=== PATIENT | female | born 1930 | race Caucasian/White ===

== ENCOUNTER 2017-03-10 18:20 | Inpatient (IN) | payer MEDICARE, BC ==
[2017-03-10 19:10] LABS: CHLORIDE,CL 102 mEq/L (98-106)
[2017-03-10 19:11] LABS: SODIUM,NA 135 mEq/L (136-145)
--- NOTE | 2017-03-10 19:19 | EDM.PDOC ---
ED HPI GENERAL MEDICAL PROBLEM - General Chief Complaint: Respiratory Problem Stated Complaint: dyspnea Time Seen by Provider: 03/10/17 18:50 Source of Information: Reports: Patient, Family History Limitations: Reports: No Limitations - History of Present Illness INITIAL COMMENTS - FREE TEXT/NARRATIVE: States that at 0500 this morning she woke up SOB and felt her heart pounding and rapid. Has been sitting around today as she is SOB with any activity. Presents to ER with daughters as SOB is getting worse. Denies having Chest pain but feels a twinge intermittently. Has 1+ edema to the left ankle. States that it has been slightly swollen since she fell 2-3 weeks ago and injured it. Occasional cough that is nonproductive. Was taken off of Digoxin in December and converted from Metoprolol ER to regular metoprolol bid. Had been doing well until today. No fever or chills. She denies any recent weight gain. Onset: Today Duration: Getting Worse Worsens with: Reports: Movement Associated Symptoms: Reports: Cough, Shortness of Breath. Denies: Chest Pain, cough w sputum, Fever/Chills - Related Data Allergies Allergy/AdvReac Type Severity Reaction Status Date / Time ampicillin Allergy Cannot Verified 03/10/17 18:25 Remember Home Meds: Home Meds Aspirin [Ecotrin] 81 mg PO DAILY 03/10/17 [History] Clindamycin HCl [Cleocin] 150 mg PO TID 03/10/17 [History] Diltiazem HCl [Cartia Xt] 1 cap PO DAILY 03/10/17 [History] Metoprolol Tartrate 25 mg PO BID 03/10/17 [History] Warfarin [Coumadin] 5 mg PO ASDIRECTED 03/10/17 [History] Past Medical History HEENT History: Reports: Cataract, Macular Degeneration, Other (See Below) Other HEENT History: has some teeth that need removal; on antibiotics for same Cardiovascular History: Reports: Afib, Hypertension, [place], PVD Respiratory History: Reports: COPD Genitourinary History: Reports: UTI, Recurrent Musculoskeletal History: Reports: Osteoporosis Dermatologic History: Reports: Other (See Below) Other Dermatologic History: chronic rash for the past 2 years; doesn't know what it is, skin is very sensitive - Past Surgical History HEENT Surgical History: Reports: Cataract Surgery Cardiovascular Surgical History: Reports: None Respiratory Surgical History: Reports: None Female Surgical History: Reports: None Musculoskeletal Surgical History: Reports: None Social & Family History - Tobacco Use Smoking Status *Q: Former Smoker Used Tobacco, but Quit: Yes Month Tobacco Last Used: 6 years ago - Living Situation & Occupation Living situation: Reports: , Alone Occupation: Retired ED ROS GENERAL - Review of Systems Review Of Systems: See Below Constitutional: Reports: Weakness, Decreased Appetite. Denies: Fever, Chills HEENT: Reports: No Symptoms Respiratory: Reports: Shortness of Breath, Cough. Denies: Sputum Cardiovascular: Reports: Edema (slight to the left ankle after fall.). Denies: Chest Pain GI/Abdominal: Denies: Constipation, Diarrhea Musculoskeletal: Reports: No Symptoms Skin: Reports: No Symptoms Neurological: Reports: Weakness. Denies: Dizziness, Headache, Syncope ED EXAM, GENERAL - Physical Exam Exam: See Below Exam Limited By: No Limitations General Appearance: Alert, WD/WN, Moderate Distress Ears: Normal External Exam, Normal Canal, Normal TMs Nose: Normal Inspection Throat/Mouth: Normal Inspection, Normal Oropharynx, Normal Voice, No Airway Compromise Head: Atraumatic, Normocephalic Neck: Normal Inspection, Supple, Non-Tender, Full Range of Motion Respiratory/Chest: Decreased Breath Sounds, Rales (to bases bilaterally). No: Rhonchi, Wheezing Cardiovascular: Normal Peripheral Pulses, Tachycardia, Irregularly Irregular GI/Abdominal: Normal Bowel Sounds, Soft, Non-Tender Extremities: Pedal Edema (1+ edema to the left foot and ankle that is not pitting.) Neurological: Alert, Oriented Skin Exam: Warm, Dry Course - Vital Signs Last Recorded V/S: Last Vital Signs Temp 98.1 F 03/10/17 19:32 Pulse 131 H 03/10/17 19:55 Resp 20 03/10/17 19:32 BP 121/64 03/10/17 19:55 Pulse Ox 92 L 03/10/17 19:32 - Orders/Labs/Meds Orders: Active Orders 24 hr Category Date Time Status Patient Status Manage Transfer [TRANSFER] Routine ADT 03/10/17 19:52 Ordered Oxygen Therapy Adult [Oxygen Therapy, ED] [RC] Care 03/10/17 18:42 Active ASDIRECTED Chest 2V [CR] Stat Exams 03/10/17 18:38 Taken UA W/MICROSCOPIC [URIN] Stat Lab 03/10/17 18:38 Uncollected Resuscitation Status Routine Resus Stat 03/10/17 19:53 Ordered Labs: Laboratory Tests 03/10/17 03/10/17 03/10/17 Range/Units 18:45 18:45 18:45 WBC 7.0 (5.0-10.0) 10^3/uL RBC 3.85 L (4.00-5.50) 10^6/uL Hgb 10.2 L (12.0-16.0) g/dL Hct 32.3 L (37.0-47.0) % MCV 83.9 (82.0-94.0) fL MCH 26.5 L (27.0-32.0) pg MCHC 31.6 L (33.0-38.0) g/dL RDW Coeff of Moisés 17.1 H (11.0-15.0) % Plt Count 288 (150-400) 10^3/uL Neut % (Auto) 70.6 (35-85) % Lymph % (Auto) 19.0 (10-55) % Isabela % (Auto) 9.2 (0-16) % Eos % (Auto) 0.6 (0-5) % Baso % (Auto) 0.6 (0-3) % Neut # (Auto) 4.97 (1.80-7.00) 10^3/uL Lymph # (Auto) 1.34 (1.00-4.80) 10^3/uL Isabela # (Auto) 0.65 (0.00-0.80) 10^3/uL Eos # (Auto) 0.04 (0.00-0.45) 10^3/uL Baso # (Auto) 0.04 10^3/uL PT 30.8 H (9.7-12.3) SEC INR 2.76 H (0.92-1.18) Sodium 135 L (136-145) mEq/L Potassium 4.4 (3.5-5.0) mEq/L Chloride 102 (98-106) mEq/L Carbon Dioxide 19 L (21-32) mmol/L BUN 20 H (7-18) mg/dL Creatinine 1.2 H (0.6-1.0) mg/dL Est Cr Clr Drug Dosing TNP Estimated GFR (MDRD) 43 L (>=60) mL/min Glucose 143 H D (75-99) mg/dL Calcium 9.5 (8.4-10.1) mg/dL Lactate Dehydrogenase 179 (100-190) U/L Creatine Kinase 79 (21-215) U/L Troponin I 0.071 H (0.00-0.06) ng/mL NT-Pro-B Natriuret Pep 7069 H (0-1000) pg/mL Meds: Medications Discontinued Medications Generic Name Dose Route Start Last Admin Trade Name Freq PRN Reason Stop Dose Admin Diltiazem HCl 10 mg 03/10/17 19:30 03/10/17 19:41 Diltiazem IVPUSH 03/10/17 19:31 10 mg ONETIME ONE Administration - Re-Assessments/Exams Free Text/Narrative Re-Assessment/Exam: 03/10/17 19:[address] Zabala. Will treat with IV cardizem and admit with telemetry. Will repeat cardizem if heart rate does not come down. Dr. Zabala agrees with admission. Departure - Departure Time of Disposition: 19:51 Disposition: Admitted As Inpatient 66 Clinical Impression: Atrial fibrillation with rapid ventricular response, COPD (chronic obstructive pulmonary disease) - Discharge Information Referrals: Alpesh Zabala MD [Primary Care Provider] - Forms: ED Department Discharge - Problem List & Annotations (1) Atrial fibrillation with rapid ventricular response SNOMED Code(s): 438003715381236 Code(s): I48.91 - UNSPECIFIED ATRIAL FIBRILLATION Status: Acute Priority : High Current Visit: Yes (2) COPD (chronic obstructive pulmonary disease) SNOMED Code(s): 59339203 Code(s): J44.9 - CHRONIC OBSTRUCTIVE PULMONARY DISEASE, UNSPECIFIED Status : Chronic Priority: Medium Current Visit: Yes Qualifiers: COPD type: unspecified COPD Qualified Code(s): J44.9 - Chronic obstructive pulmonary disease, unspecified - Problem List Review Problem List Initiated/Reviewed/Updated: Yes - My Orders Last 24 Hours: My Active Orders 03/10/17 18:38 Chest 2V [CR] Stat UA W/MICROSCOPIC [URIN] Stat 03/10/17 18:42 Oxygen Therapy Adult [Oxygen Therapy, ED] [RC] ASDIRECTED 03/10/17 19:52 Patient Status Manage Transfer [TRANSFER] Routine 03/10/17 19:53 Resuscitation Status Routine - Assessment/Plan Last 24 Hours: My Active Orders 03/10/17 18:38 Chest 2V [CR] Stat UA W/MICROSCOPIC [URIN] Stat 03/10/17 18:42 Oxygen Therapy Adult [Oxygen Therapy, ED] [RC] ASDIRECTED 03/10/17 19:52 Patient Status Manage Transfer [TRANSFER] Routine 03/10/17 19:53 Resuscitation Status Routine
[2017-03-10] MEDS ORDERED: Diltiazem 25 MG/5 ML SDV IVPUSH ONE ×2 (19:30→21:47)
[2017-03-10] MEDS ORDERED: Warfarin 5 MG Tab PO SCH (21:00)
[2017-03-10] MEDS ORDERED: Sodium Chloride 0.9% 10 ML Syringe FLUSH PRN (21:00)
[2017-03-10] MEDS: Metoprolol Tartrate 25 MG Tab PO SCH (21:35)
[2017-03-10] MEDS: Clindamycin HCl 150 MG Cap PO SCH (21:40)
[2017-03-10] MEDS ORDERED: Diltiazem 25 MG/5 ML SDV ONE (22:06)
[2017-03-10] MEDS: Diltiazem 100 MG in Sodium Chloride 0.9% 100 ML IV SCH (23:21)
[2017-03-11] MEDS: Diltiazem 100 MG in Sodium Chloride 0.9% 100 ML IV SCH ×2 (06:09→09:27)
[2017-03-11] MEDS ORDERED: Aspirin 81 MG Tab.EC PO SCH (08:00)
[2017-03-11] MEDS ORDERED: [UNRECOGNIZED DRUG - REMARK] PO SCH (08:00)
[2017-03-11] MEDS: Metoprolol Tartrate 25 MG Tab PO SCH (08:01)
[2017-03-11] MEDS: Clindamycin HCl 150 MG Cap PO SCH (08:02)
[2017-03-11] MEDS ORDERED: Warfarin 2.5 MG Tab PO SCH (12:00)
[2017-03-12] MEDS ORDERED: Warfarin 5 MG Tab PO SCH (12:00)
--- NOTE | 2017-03-14 19:44 | PCM.DCSUM1 ---
Discharge Summary - Hospital Course Free Text/Narrative:: Patient presented to ER with complaints of shortness of breath. States had awoke at 0500 with shortness of breath and a tightening in her chest, heart was pounding at that time. States was unable to do much through the day as she would get short of breath with any activity. Been experiencing intermittent twinges of chest discomfort. Had fallen 3 weeks ago, had mild edema in the left leg since but states no further pain. She had been on Cleocin for the last 2 days for a tooth abscess, admits it was bothering her stomach. She had been taken off her Lanoxin back in January as she "wanted to be taken off some of the meds". Was controlled with metoprolol BID, on Coumadin. Given IV Cardizem x2 in ER and placed on a Cardizem drip, cardiac monitoring. - Discharge Data Discharge Date: 03/12/17 Discharge Disposition: DC/Tfer to Acute Hospital 02 Condition: Fair - Patient Summary/Data Complications: none Hospital Course: Patient admitted on Cardizem drip and cardiac monitoring. Cardizem had been infusing at 15 mg/hr but heart rate still in the 110s-120s. Became hypotensive this am, blood pressure 90s/50s. Did have to decrease the Cardizem due to drop in blood pressure. Patient is no longer experiencing any chest discomfort, still dyspneic with exertion but better since on Oxygen. Sats 93% on 3 liters. Lung sounds are clear, 1+ edema to LLE. Cardiac enzymes have been negative. EKG and telemetry have noted 2-3 second pauses with base rate of atrial fib. Due to inability to control heart rate with Cardizem and drop in blood pressure as well as notable pauses, contact [place] for possible transfer for pacemaker, further cardiac care. - Patient Instructions Diet: Usual Diet as Tolerated Activity: As Tolerated Other/Special Instructions: Transfer to [facility] per [facility]. - Discharge Plan Home Medications: Home Meds Aspirin [Ecotrin] 81 mg PO DAILY 03/10/17 [History] Clindamycin HCl [Cleocin] 150 mg PO TID 03/10/17 [History] Diltiazem HCl [Cartia Xt] 1 cap PO DAILY 03/10/17 [History] Metoprolol Tartrate 25 mg PO BID 03/10/17 [History] Warfarin [Coumadin] 5 mg PO ASDIRECTED 03/10/17 [History] Forms: ED Department Discharge Referrals: Alpesh Zabala MD [Primary Care Provider] - - Discharge Summary/Plan Comment DC Time >30 min.: Yes Discharge Summary/Plan Comment: Discharge to [facility]. Transfer per ALS. Risks and benefits of transfer discussed with family and patient. Risks of transfer include worsening status to even possible , vehicle crash. Benefits of transfer include more intensive cardiac care. Risks of nontransfer include worsening status and lack of specialized care. Benefits include staying close to home. Family agrees to transfer. Time with patient and family [address] Elliott 10 minutes Time for discharge and documentation 15 minutes. - General Info Date of Service: 03/12/17 Admission Dx/Problem (Free Text: Atrial Fib with RVR Functional Status: Reports: Pain Controlled, Tolerating Diet, Ambulating - Review of Systems General: Reports: Weakness, Fatigue. Denies: Fever HEENT: Reports: No Symptoms Pulmonary: Reports: Shortness of Breath. Denies: Cough Cardiovascular: Reports: Edema. Denies: Chest Pain, Lightheadedness Gastrointestinal: Denies: Abdominal Pain, Nausea, Vomiting Genitourinary: Reports: No Symptoms Musculoskeletal: Reports: No Symptoms Skin: Reports: No Symptoms Neurological: Reports: No Symptoms - Patient Data Vitals - Most Recent: Last Vital Signs Temp 98.2 F 03/11/17 10:00 Pulse 105 H 03/11/17 10:23 Resp 20 03/11/17 10:23 BP 99/53 L 03/11/17 10:23 Pulse Ox 93 L 03/11/17 10:23 Weight - Most Recent: 123 lb Med Orders - Current: Current Medications Discontinued Medications Aspirin (Halfprin) 81 mg PO DAILY [facility] Last Admin: 03/11/17 08:01 Dose: 81 mg Clindamycin HCl (Cleocin) 150 mg PO TID [facility] Last Admin: 03/11/17 08:02 Dose: Not Given Diltiazem HCl (Diltiazem) 10 mg IVPUSH ONETIME ONE Stop: 03/10/17 19:31 Last Admin: 03/10/17 19:41 Dose: 10 mg Diltiazem HCl (Diltiazem) 10 mg IVPUSH STAT ONE Stop: 03/10/17 21:48 Last Admin: 03/10/17 21:52 Dose: 10 mg Diltiazem HCl (Diltiazem) Confirm Administered Dose 25 mg .ROUTE .STK-MED ONE Stop: 03/10/17 22:07 Last Admin: 03/10/17 21:56 Dose: Not Given Diltiazem HCl 100 mg/ Sodium (Chloride) 100 mls @ 5 mls/hr IV TITRATE ALEXANDRO; 5 MG /HR PRN Reason: Protocol Last Admin: 03/11/17 09:27 Dose: 10 mg/hr, 10 mls/hr Metoprolol Tartrate (Lopressor) 25 mg PO BID [facility] Last Admin: 03/11/17 08:01 Dose: 25 mg Cartia Xt 300/24hr Cap (Diltiazem) Non Form Med 1 each PO DAILY [facility] Last Admin: 03/11/17 08:22 Dose: 1 each Sodium Chloride (Saline Flush) 10 ml FLUSH ASDIRECTED PRN PRN Reason: Keep Vein Open Warfarin Sodium (Coumadin) 5 mg PO SuTuFr@1200 ALEXANDRO Warfarin Sodium (Coumadin) 2.5 mg PO MoWeThSa@1200 [facility] - Exam Quality Assessment: Reports: Supplemental Oxygen General: Reports: Alert, Oriented HEENT: Reports: Mucous Membr. Moist/[place] Neck: Reports: Supple Lungs: Reports: Clear to Auscultation, Normal Respiratory Effort Cardiovascular: Reports: Irregular Rhythm GI/Abdominal Exam: Normal Bowel Sounds, Soft, Non-Tender Extremities: Normal Inspection, Pedal Edema (1+ LLE) Skin: Reports: Warm, Dry Neurological: Reports: No New Focal Deficit *Q Meaningful Use (DIS) - VTE *Q VTE Criteria *Q: - Stroke *Q Stroke Criteria *Q: - AMI *Q AMI Criteria *Q:
== END 2017-03-11 10:45 | DRG 310 ==
LOC: CC.ED 18:20 → CC.MS 20:11 → UNDOADMIN 20:11 → CC.MS 21:00
PROVIDERS: ADMIT Physician Assistant Medical; ATTEND Family Medicine
DX: I48.91 Unspecified atrial fibrillation (principal); I95.9 Hypotension, unspecified; J44.9 Chronic obstructive pulmonary disease, unspecified; I10 Essential (primary) hypertension; I25.2 Old myocardial infarction; I73.9 Peripheral vascular disease, unspecified; M81.0 Age-related osteoporosis without current pathological fracture; H35.30 Unspecified macular degeneration; Z87.891 Personal history of nicotine dependence; Z88.1 Allergy status to other antibiotic agents; Z79.01 Long term (current) use of anticoagulants; Z79.82 Long term (current) use of aspirin; Z79.899 Other long term (current) drug therapy
CPT/HCPCS: 36415; 71046; 80048; 82550; 83615; 83880; 84484; 85025; 85610; 93005; 96374; 99285; J3490; 80053; 81001; 93010; A9270-GY; J7050

== ENCOUNTER 2017-03-17 10:35 | Inpatient (IN) | payer MEDICARE, BC ==
[2017-03-17] MEDS ORDERED: Acetaminophen 325 MG Tab PO PRN (13:34)
[2017-03-17] MEDS ORDERED: Ondansetron 4 MG Tab.DIS PO PRN (13:34)
[2017-03-17] MEDS ORDERED: Polyethylene Glycol 3350 Powder 17 GM Packet PO PRN (15:36)
[2017-03-17] MEDS: Metoprolol Succinate 25 MG Tab.ER PO SCH (19:34)
[2017-03-18] MEDS ORDERED: Polyethylene Glycol 3350 Powder 17 GM Packet PO SCH (08:00)
[2017-03-18] MEDS: Aspirin 81 MG Tab.EC PO SCH (08:06)
[2017-03-18] MEDS: Potassium Chloride 10 MEQ Tab.ER PO SCH (08:06)
--- NOTE | 2017-03-18 09:35 | PCM.HP ---
H&P History of Present Illness - General Date of Service: 03/17/17 Admit Problem/Dx: Admission Diagnosis/Problem Admission Diagnosis/Problem Atrial fibrillation Source of Information: Patient, Old Records History Limitations: Reports: No Limitations - History of Present Illness Initial Comments - Free Text/Narative: Patient admitted swing bed from [facility] after pacemaker implantation. Patient had been in rapid a fib that was uncontrolled by lopressor and Cardizem drip while here and was transferred to [place]. Was having 2-3 second pauses and hypotensive events. At [place], patient had an echo that did show 25% ejection fraction with LV dysfunction. She continued to have rate in the 130s despite Cardizem drip. She underwent pacemaker implantation and AV ablation at [place]. Rate now controlled. Lopressor dose increased there, Coumadin was held for procedure so need to continue to monitor INR until therapeutic. Transferred here for PT due to deconditioning. Sling to left arm as recommended to not raise arm for 2 weeks or lift more than 10#. Patient very drowsy on exam. States "very tired out from trip to return here". Also did develop diarrhea and had several bowel movements enroute to here as she was given "laxative before she left". Denies any shortness of breath or chest pain at rest. States appetite has been poor Duration of Symptoms: Reports: Day(s): Associated Symptoms: Reports: Loss of Appetite, Weakness. Denies: Confusion, Chest Pain, Cough, Fever/Chills, Nausea/Vomiting, Shortness of Breath - Related Data Allergies/Adverse Reactions: Allergies Allergy/AdvReac Type Severity Reaction Status Date / Time ampicillin Allergy Stomach Verified 03/17/17 12:31 Ache Penicillins Allergy Stomach Verified 03/17/17 12:31 Ache Home Medications: Home Meds Aspirin [Ecotrin] 81 mg PO DAILY 03/10/17 [History] Warfarin [Coumadin] 5 mg PO ASDIRECTED 03/10/17 [History] Past Medical History HEENT History: Reports: Cataract, Macular Degeneration, Other (See Below) Other HEENT History: has some teeth that need removal; on antibiotics for same Cardiovascular History: Reports: Afib, Hypertension, [place], Pacemaker, PVD Respiratory History: Reports: COPD Genitourinary History: Reports: UTI, Recurrent Musculoskeletal History: Reports: Osteoporosis Dermatologic History: Reports: Other (See Below) Other Dermatologic History: chronic rash for the past 2 years; doesn't know what it is, skin is very sensitive - Past Surgical History HEENT Surgical History: Reports: Cataract Surgery Cardiovascular Surgical History: Reports: Cardiac Ablation, Other (See Below) Other Cardiovascular Surgeries/Procedures: dual pacemaker placed Respiratory Surgical History: Reports: None Female Surgical History: Reports: None Musculoskeletal Surgical History: Reports: None Social & Family History - Tobacco Use Smoking Status *Q: Former Smoker Used Tobacco, but Quit: Yes Month Tobacco Last Used: 2011 - Caffeine Use Caffeine Use: Reports: Coffee - Living Situation & Occupation Living situation: Reports: , Alone Occupation: Retired H&P Review of Systems - Review of Systems: Review Of Systems: See Below General: Reports: Malaise, Weakness, Fatigue, Decreased Appetite. Denies: Fever , Chills HEENT: Denies: Ear Pain, Rhinitis, Sinus Congestion, Sore Throat Pulmonary: Reports: Shortness of Breath (with exertion). Denies: Cough Cardiovascular: Reports: Other (has discomfort to site of pacemaker implantation ). Denies: Chest Pain Gastrointestinal: Reports: Diarrhea. Denies: Abdominal Pain, Nausea, Vomiting Genitourinary: Reports: No Symptoms Musculoskeletal: Reports: No Symptoms Skin: Reports: No Symptoms Psychiatric: Reports: No Symptoms Exam - Exam Exam: See Below - Vital Signs Vital Signs: Last Vital Signs Temp 97.0 F 03/18/17 07:19 Pulse 86 03/18/17 07:19 Resp 20 03/18/17 07:19 BP 113/52 L 03/18/17 07:19 Pulse Ox 95 03/18/17 07:19 Weight: 117 lb 3.2 oz - Exam General: Alert, Oriented HEENT: Mucosa Moist & [place], Posterior Pharynx Clear Neck: Supple Lungs: Clear to Auscultation, Normal Respiratory Effort Cardiovascular: Regular Rate, Regular Rhythm GI/Abdominal Exam: Normal Bowel Sounds, Soft, Non-Tender Extremities: Normal Inspection, Pedal Edema (1+ to LLE) Skin: Warm, Dry, Incision (steri strips intact to left upper chest wall) Neuro Extensive - Mental Status: Alert, Oriented x3 Psychiatric: Alert, Normal Affect, Normal Mood - Patient Data Lab Results Last 24 hrs: Laboratory Results - last 24 hr 03/18/17 Range/Units 06:40 PT 18.6 H (9.7-12.3) SEC INR 1.69 H (0.92-1.18) *Q Meaningful Use (ADM) - VTE *Q VTE Criteria *Q: - Stroke *Q Stroke Criteria *Q: - AMI *Q AMI Criteria *Q: - Problem List (1) Pacemaker SNOMED Code(s): 726637349 ICD Code: Z95.0 - PRESENCE OF CARDIAC PACEMAKER Status: Acute Priority: High Current Visit: Yes (2) Atrial fibrillation with rapid ventricular response SNOMED Code(s): 372656873645052 ICD Code: I48.91 - UNSPECIFIED ATRIAL FIBRILLATION Status: Acute Priority : High Current Visit: Yes Problem List Initiated/Reviewed/Updated: Yes Orders Last 24hrs: Active Orders 24 hr Category Date Time Status Patient Status [ADT] Routine ADT 03/17/17 13:34 Active Antiembolic Devices [RC] 1000,2200 Care 03/17/17 14:35 Active Communication Order [RC] DAILY Care 03/17/17 13:34 Active Communication Order [RC] ROUTINE Care 03/17/17 13:34 Active Oxygen Therapy [RC] .PRN Care 03/17/17 13:34 Active Up ad Anne [RC] .PRN Care 03/17/17 13:34 Active Vital Signs [RC] 0800,2000 Care 03/17/17 13:34 Active Weight, Daily [Height and Weight] [RC] 0500 Care 03/17/17 14:41 Active PT Evaluation and Treatment [CONS] Routine Cons 03/17/17 13:34 Active Heart Healthy Diet [DIET] Diet 03/17/17 Dinner Active Acetaminophen [Tylenol] Med 03/17/17 13:34 Active 650 mg PO Q4H PRN Aspirin [Halfprin] Med 03/18/17 08:00 Active 81 mg PO DAILY Furosemide [Lasix] Med 03/19/17 08:00 Active 20 mg PO Q48H Metoprolol Succinate [Toprol XL] Med 03/17/17 20:00 Active 50 mg PO BEDTIME Ondansetron [Zofran ODT] Med 03/17/17 13:34 Active 4 mg PO Q4H PRN Polyethylene Glycol 3350 [MiraLAX] Med 03/17/17 15:36 Active 17 gm PO DAILY PRN Potassium Chloride [Klor-Con 10] Med 03/18/17 08:00 Active 20 meq PO DAILY Warfarin [Coumadin] Med 03/18/17 12:00 Active 2.5 mg PO MoWeThSa@1200 Warfarin [Coumadin] Med 03/19/17 12:00 Active 5 mg PO SuTuFr@1200 SHERLYN Hose [Antiembolic Hose] [OM.PC] Routine Oth 03/17/17 14:35 Ordered Resuscitation Status Routine Resus Stat 03/17/17 13:34 Ordered Medication Orders Acetaminophen (Tylenol) 650 mg PO Q4H PRN PRN Reason: Pain (Mild 1-3)/fever Aspirin (Halfprin) 81 mg PO DAILY [facility] Last Admin: 03/18/17 08:06 Dose: 81 mg Furosemide (Lasix) 20 mg PO Q48H [facility] Metoprolol Succinate (Toprol Xl) 50 mg PO BEDTIME [facility] Last Admin: 03/17/17 19:34 Dose: 50 mg Ondansetron HCl (Zofran Odt) 4 mg PO Q4H PRN PRN Reason: nausea, able to take PO Polyethylene Glycol (Miralax) 17 gm PO DAILY PRN PRN Reason: Constipation Potassium Chloride (Klor-Con 10) 20 meq PO DAILY [facility] Last Admin: 03/18/17 08:06 Dose: 20 meq Warfarin Sodium (Coumadin) 5 mg PO SuTuFr@1200 [facility] Warfarin Sodium (Coumadin) 2.5 mg PO MoWeThSa@1200 [facility] Assessment/Plan Comment:: Admit to swing bed for deconditioning. PT evaluate and treat. Monitor blood pressure. Sling to left arm as not raise arm above head. Pain meds as needed. Monitor incision site. Dr. Zabala aware of admission and agrees with plan
[2017-03-18] MEDS: Warfarin 2.5 MG Tab PO SCH (12:09)
[2017-03-18] MEDS: Metoprolol Succinate 25 MG Tab.ER PO SCH (20:36)
[2017-03-19] MEDS: Furosemide 20 MG Tab PO SCH (07:38)
[2017-03-19] MEDS: Aspirin 81 MG Tab.EC PO SCH (07:38)
[2017-03-19] MEDS: Potassium Chloride 10 MEQ Tab.ER PO SCH (07:38)
[2017-03-19] MEDS ORDERED: Furosemide 20 MG Tab PO SCH (08:00)
[2017-03-19] MEDS: Warfarin 5 MG Tab PO SCH (11:59)
[2017-03-19] MEDS: Metoprolol Succinate 25 MG Tab.ER PO SCH (19:59)
[2017-03-20] MEDS: Potassium Chloride 10 MEQ Tab.ER PO SCH (08:15)
[2017-03-20] MEDS: Aspirin 81 MG Tab.EC PO SCH (08:16)
[2017-03-20] MEDS: Warfarin 2.5 MG Tab PO SCH (12:52)
[2017-03-20] MEDS: Metoprolol Succinate 25 MG Tab.ER PO SCH (19:55)
[2017-03-21] MEDS: Aspirin 81 MG Tab.EC PO SCH (08:00)
[2017-03-21] MEDS: Potassium Chloride 10 MEQ Tab.ER PO SCH (08:00)
[2017-03-21] MEDS: Furosemide 20 MG Tab PO SCH (08:03)
[2017-03-21] MEDS: Warfarin 5 MG Tab PO SCH (11:54)
[2017-03-21] MEDS: Metoprolol Succinate 25 MG Tab.ER PO SCH (19:23)
[2017-03-22] MEDS: Potassium Chloride 10 MEQ Tab.ER PO SCH (07:23)
[2017-03-22] MEDS: Aspirin 81 MG Tab.EC PO SCH (07:24)
[2017-03-22] MEDS: Warfarin 2.5 MG Tab PO SCH (12:07)
[2017-03-22] MEDS: Metoprolol Succinate 25 MG Tab.ER PO SCH (20:07)
[2017-03-23] MEDS: Aspirin 81 MG Tab.EC PO SCH (07:25)
[2017-03-23] MEDS: Potassium Chloride 10 MEQ Tab.ER PO SCH (07:25)
[2017-03-23] MEDS: Furosemide 20 MG Tab PO SCH (07:27)
[2017-03-23] MEDS: Warfarin 5 MG Tab PO SCH (11:23)
--- NOTE | 2017-03-24 14:38 | PCM.DCSUM1 ---
Discharge Summary - Hospital Course Free Text/Narrative:: Patient admitted swing bed from [place] for strengthening following an ablation and pacemaker implantation. Patient had went in to rapid a count includes the [facility] prior to transfer to [place] and was uncontrolled by Cardizem drip. Did have issues with hypotension related to the Cardizem. At [place], patient did have an echo with 25% ejection fraction with LV dysfunction noted. Medications changes were made there, increased her Lopressor, resumed Coumadin after the procedure was done. Patient was placed in a sling there and advised to not raise arm above head for 2 weeks post surgery. - Discharge Data Discharge Date: 03/24/17 Discharge Disposition: Home, Self-Care 01 Condition: Good - Discharge Diagnosis/Problem(s) (1) Pacemaker SNOMED Code(s): 167454212 ICD Code: Z95.0 - PRESENCE OF CARDIAC PACEMAKER Status: Acute Priority: High (2) Atrial fibrillation with rapid ventricular response SNOMED Code(s): 104250268997246 ICD Code: I48.91 - UNSPECIFIED ATRIAL FIBRILLATION Status: Acute Priority : High - Patient Summary/Data Complications: none Consults: Consultations 03/17/17 13:34 PT Evaluation and Treatment [CONS] Routine Hospital Course: Patient has had slow improvement overall. She has been able to resume total care for herself during stay. Compliant with sling. INR monitored, now 1.73 since placed back on Coumadin. Patient has not been using medications for discomfort as of late, incision to chest healing well. Appetite has improved. Heart rate and blood pressure have been controlled. - Patient Instructions Diet: Usual Diet as Tolerated Activity: As Tolerated - Discharge Plan Prescriptions/Med Rec: Furosemide [Lasix] 20 mg PO Q48H #30 tablet Metoprolol Succinate [Toprol XL] 50 mg PO BEDTIME #30 tab.er Potassium Chloride [Klor-Con 10] 20 meq PO DAILY #30 tab.er Warfarin [Coumadin] 2.5 mg PO MoWeThSa@1200 #30 tablet Warfarin [Coumadin] 5 mg PO SuTuFr@1200 #30 tablet Home Medications: Home Meds Aspirin [Ecotrin] 81 mg PO DAILY 03/10/17 [History] Furosemide [Lasix] 20 mg PO Q48H #30 tablet 03/23/17 [Rx] Metoprolol Succinate [Toprol XL] 50 mg PO BEDTIME #30 tab.er 03/23/17 [Rx] Potassium Chloride [Klor-Con 10] 20 meq PO DAILY #30 tab.er 03/23/17 [Rx] Warfarin [Coumadin] 2.5 mg PO MoWeThSa@1200 #30 tablet 03/23/17 [Rx] Warfarin [Coumadin] 5 mg PO SuTuFr@1200 #30 tablet 03/23/17 [Rx] Patient Handouts: Pacemaker Implantation, Pacemaker Implantation, Care After, Atrial Fibrillation Referrals: Alpesh Zabala MD [Primary Care Provider] - (Follow up with Dr. Zabala in 2 weeks. Recheck INR prior to visit) - Discharge Summary/Plan Comment DC Time >30 min.: No Discharge Summary/Plan Comment: Patient to return home. Continue Coumadin daily. Recheck INR at hospital follow up visit. Lasix every other day unless increased shortness of breath or weight gain, then take daily. Continue wearing sling until follow up appointment next week with cardiology. No lifting more than 10#. - General Info Date of Service: 03/24/17 Admission Dx/Problem (Free Text: Admission Diagnosis/Problem Admission Diagnosis/Problem Atrial fibrillation Functional Status: Reports: Pain Controlled, Tolerating Diet, Ambulating - Review of Systems General: Reports: Weakness. Denies: Fever, Fatigue, Malaise HEENT: Reports: No Symptoms Pulmonary: Denies: Shortness of Breath, Cough, Wheezing Cardiovascular: Denies: Chest Pain, Edema, Lightheadedness Gastrointestinal: Denies: Abdominal Pain, Nausea, Vomiting Genitourinary: Reports: No Symptoms Musculoskeletal: Reports: No Symptoms Skin: Reports: Other (incision healing well) Neurological: Reports: No Symptoms - Patient Data Vitals - Most Recent: Last Vital Signs Temp 98.1 F 03/23/17 08:00 Pulse 85 03/23/17 08:00 Resp 20 03/23/17 08:00 BP 102/56 L 03/23/17 08:00 Pulse Ox 94 L 03/23/17 08:00 Weight - Most Recent: 114 lb 4.8 oz I&O - Last 24 hours: Intake & Output 03/23/17 03/24/17 03/24/17 22:59 06:59 14:59 Output Total 100 Balance -100 Med Orders - Current: Current Medications Discontinued Medications Acetaminophen (Tylenol) 650 mg PO Q4H PRN PRN Reason: Pain (Mild 1-3)/fever Aspirin (Halfprin) 81 mg PO DAILY [facility] Last Admin: 03/23/17 07:25 Dose: 81 mg Furosemide (Lasix) 0 mg PO DAILY [facility] Furosemide (Lasix) 20 mg PO Q48H [facility] Last Admin: 03/23/17 07:27 Dose: 20 mg Metoprolol Succinate (Toprol Xl) 50 mg PO BEDTIME [facility] Last Admin: 03/22/17 20:07 Dose: 50 mg Ondansetron HCl (Zofran Odt) 4 mg PO Q4H PRN PRN Reason: nausea, able to take PO Polyethylene Glycol (Miralax) 17 gm PO DAILY [facility] Polyethylene Glycol (Miralax) 17 gm PO DAILY PRN PRN Reason: Constipation Potassium Chloride (Klor-Con 10) 20 meq PO DAILY [facility] Last Admin: 03/23/17 07:25 Dose: 20 meq Warfarin Sodium (Coumadin) 5 mg PO SuTuFr@1200 [facility] Last Admin: 03/23/17 11:23 Dose: 5 mg Warfarin Sodium (Coumadin) 2.5 mg PO MoWeThSa@1200 [facility] Last Admin: 03/22/17 12:07 Dose: 2.5 mg - Exam General: Reports: Alert, Oriented HEENT: Reports: Mucous Membr. Moist/[place]ck: Reports: Supple Lungs: Reports: Clear to Auscultation, Normal Respiratory Effort Cardiovascular: Reports: Regular Rate, Regular Rhythm GI/Abdominal Exam: Normal Bowel Sounds, Soft, Non-Tender Extremities: Normal Inspection, No Pedal Edema Skin: Reports: Warm, Dry Wound/Incisions: Reports: Healing Well Neurological: Reports: No New Focal Deficit *Q Meaningful Use (DIS) - VTE *Q VTE Criteria *Q: - Stroke *Q Stroke Criteria *Q: - AMI *Q AMI Criteria *Q:
== END 2017-03-23 17:43 | disposition home or self-care (01) | DRG 948 ==
LOC: UNDOADMIN 13:04 → CC.MS 13:04
PROVIDERS: ADMIT Family Medicine; ATTEND Family Medicine
DX: R53.1 Weakness (principal); Z95.0 Presence of cardiac pacemaker; H35.30 Unspecified macular degeneration; I48.91 Unspecified atrial fibrillation; I10 Essential (primary) hypertension; I25.2 Old myocardial infarction; I73.9 Peripheral vascular disease, unspecified; J44.9 Chronic obstructive pulmonary disease, unspecified; M81.0 Age-related osteoporosis without current pathological fracture; R21 Rash and other nonspecific skin eruption; Z87.891 Personal history of nicotine dependence; Z79.01 Long term (current) use of anticoagulants; Z79.82 Long term (current) use of aspirin
CPT/HCPCS: 36415; 85610; 97110-GP; 97161-GP; 97530-GP; A9270-GY